=== PATIENT | female | born 1955 | race Caucasian/White ===

== ENCOUNTER 2019-12-09 18:30 | Observation (INO) | payer MEDICARE ==
[~2019-12-09] VITALS: Ht 160 cm; Wt 54.5 kg
--- NOTE | 2019-12-09 18:30 | NUR ---
PT IMMEDIATELY TO RM 11 VIA EMS STRETCHER. B/S TRIAGE COMPLETED.
[2019-12-09 18:57] LABS: HEMATOCRIT 38.8 % (37.0-47.0); HEMOGLOBIN 12.7 g/dl (12.0-16.0); IMMATURE GRANULOCYTES 0.4 % (0.0-5.0); MEAN CELL VOLUME 90.9 fL CALC (80.0-100.0); MEAN CORPUSCULAR HGB 29.7 pG CALC (26.0-32.0); MEAN CORPUSCULAR HGB CONC 32.7 g/dL CAL (32.0-36.0); NEUT# 6.87 thou/uL (2.00-7.15); RED BLOOD COUNT 4.27 mill/uL (4.20-5.60); RED CELL DISTRI WIDTH 13.2 % (11.5-15.5)
--- NOTE | 2019-12-09 19:04 | NUR ---
CALLED POISON CONTROL. RECOMMENDED SUPPORTIVE CARE OF ANY SYMPTOMS THAT MAY ARISE. SEIZURE PRECAUTIONS IF NECESSARY AND INCREASED OBSERVATION UNTIL SYMPTOMS PASS. PATIENT IS STATING TO JUST LET HER THAT SHE JUST WANTS TO
[2019-12-09 19:10] LABS: ALKALINE PHOSPHATASE 67 u/l (38-126); ANION GAP 11 (6-22 (CALC)); BILIRUBIN, TOTAL 0.8 mg/dL (0.0-1.4); BUN 15 mg/dL (8-23); BUN/CREATININE RATIO 17 (12-20 (CALC)); CARBON DIOXIDE 23 mmol/l (22-30); CHLORIDE 108 mmol/l (95-108); CREATININE 0.9 mg/dL (0.5-1.0); ETHYL ALCOHOL 0 mg/dl (0-30); GFR > 60 ML/MIN (>=60 (CALC)); GFR FOR AFR.AMER. > 60 ML/MIN (>=60 (CALC)); POTASSIUM 3.5 mmol/l (3.5-5.1); SGOT/AST 39 u/l (9-36); SODIUM 139 mmol/l (137-146)
[2019-12-09 19:12] LABS: PROTHROMBIN TIME 10.2 SECONDS (9.0-12.5)
--- NOTE | 2019-12-09 19:17 | NUR ---
REPORT TO PAOLA EDMONDSON
--- NOTE | 2019-12-09 20:29 | NUR ---
TOOK PT TO CT FOR SCANS. REMOVED SOFT WRIST RESTRAINTS AND PT SLEPT THROUGH ENTIRE EVALUATION. LEFT WRIST RESTRAINTS OFF. PT CONTINUES WITH SNORING RESPIRATIONS. DID NEURO ASSESSMENT UNABLE TO CHART BASELINE OF PT DUE TO MEDICATION.
--- NOTE | 2019-12-09 21:45 | NUR ---
IN TO STRAIGHT CATH PT TO OBTAIN URINE. INFORMED PT WHAT I WAS GOING TO DO. PT OPENED HER EYES, INFORMED HER AGAIN WHAT I WAS GOING TO DO AND SHE CLOSED EYES AGAIN AND QUICKLY RETURNED TO SNORING RESPIRATIONS.
[2019-12-09 22:12] LABS: URINE BILIRUBIN - DIPSTICK NEGATIVE (NEGATIVE); URINE BLOOD DIPSTICK MODERATE (NEGATIVE); URINE COLOR YELLOW; URINE GLUCOSE - DIPSTICK NEGATIVE (NEGATIVE); URINE KETONE NEGATIVE (NEGATIVE); URINE LEUK ESTERASE TRACE (NEGATIVE); URINE PH 5.5 (4.5-8.0); URINE PROTEIN - DIPSTICK TRACE mg/dL (NEG-TRACE); URINE SPECIFIC GRAVITY >=1.030; URINE UROBILINOGEN - DIPSTICK 0.2 E.U./dL (0.2)
[2019-12-09 22:15] LABS: URINE NITRITE - DIPSTICK POSITIVE (Negative)
[2019-12-09 22:24] LABS: URINE RBC 0-2 RBC/hpf (0-5)
[2019-12-09 22:25] LABS: URINE BACTERIA MANY hpf; URINE SQUAMOUS EPITHELIAL CELL FEW EPI/hpf (0-FEW)
--- NOTE | 2019-12-09 23:45 | NUR ---
EDENILSON FROM POISON CONTROL UPDATED.
--- NOTE | 2019-12-10 00:26 | NUR ---
PT WIDE AWAKE AND WANTS TO GO. INFORMED PT SHE SAID SHE WANTED TO KILL HERSELF WHEN SHE CAME IN. INFORMED PT SHE IS UNDER A SANDY ACT. PT STATED SHE DID NOT WANT TO GO BACK TO [facility] THAT SHE JUST GOT OUT OF THERE A FEW DAYS AGO. PT STATES THEY PUT HER ON ABILIFY 5MG AND SOMETHING THAT IS LIKE DEPAKOTE BUT BETTER 150 MG BID. PT STATED SHE SAID SHE WANTED TO KILL HERSELF BECAUSE SHE DIDN'T WANT A WHITE MALE THAT SHE ONLY LIKES BLACK MEN. SPOKE WITH EDENILSON AGAIN AT POISON CONTROL. SHE WANTS DEPAKOTE LEVEL SINCE PT MENTIONED IT AND REPEAT AST\ALT LEVEL.
--- NOTE | 2019-12-10 01:09 | NUR ---
PT HAS BEEN TALKING NON-STOP WITH IRIS. PT REPEATEDLY STATES SHE DOES NOT WANT TO GO BACK TO [facility] THAT SHE WAS JUST THERE FOR 5 DAYS. STILL WAITING ON DEPAKOTE AND REPEAT AST/ALT LEVELS
[2019-12-10 01:11] LABS: SGOT/AST 30 u/l (9-36)
--- NOTE | 2019-12-10 01:55 | NUR ---
CONRAD LEFT AND DEBO MORELAND TOOK OVER SITTING WITH PT.
--- NOTE | 2019-12-10 02:45 | NUR ---
PATIENT UP TO BEDSIDE COMMODE. PATIENT REMOVED HERSELF FROM MONITOR, ALSO REMOVED HER GOWN, STATES SHE FEELS HUMILIATED WEARING IT. PATIENT LINENS CHANGED FROM WATER SPILL. PATIENT GIVEN PILLOW AND WARM BLANKETS AND ENCOURAGED TO GET SOME REST SINCE IT IS ALMOST 3AM. PATIENT HAVING PRESSURED SPEECH.
--- NOTE | 2019-12-10 03:35 | NUR ---
SOBALTA WITH RACHEL AT POISON CONTROL. UPDATED ON LAB RESULTS AND PATIENT STATUS. STATES PATIENT IS MEDICALLY CLEARED FROM POISON CONTROL'S STANDPOINT. AWARE.
--- NOTE | 2019-12-10 04:11 | NUR ---
PATIENT RESTING WITH EYES CLOSED.
--- NOTE | 2019-12-10 05:12 | NUR ---
PATIENT AWAKE INTERMITTENTLY. DENIES ANY COMPLAINTS AT PRESENT. PATIENT HAS BEEN MEDICALLY CLEARED. RECORDS BEING SENT TO [facility] FOR ACCEPTANCE.
--- NOTE | 2019-12-10 06:00 | NUR ---
CALLED TO GIVE REPORT TO ICE, MARYAM WILL CALL BACK
--- NOTE | 2019-12-10 06:24 | NUR ---
REPORT GIVEN TO MATTHEW FRANCISCO
--- NOTE | 2019-12-10 06:34 | NUR ---
TRANSPORTED PT TO ICU BED 5. PT REFUSED TO PUT ON GOWN. 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
--- NOTE | 2019-12-10 06:40 | NUR ---
64 yr old female admitted icu5 per stretcher from er. amb to br then to bed. adarsh act cont. sitter @ bedside.
[2019-12-10 08:00] VITALS: BP 133/73
--- NOTE | 2019-12-10 08:00 | NUR ---
PT ARRIVES TO ICU-5 BY STRETCHER FROM ER ACCOMPANIED BY PAOLA RN. PT IS ALERT AND ORIENTED X 3, ALTHOUGH SHE IS IN MANIC MODE AND TALKS INCESSANTLY. LUNGS CLEAR, RA. SKIN INTACT. IV STARTED UPON ARRIVAL TO ICU SHE PULLED OUT ONE PLACED IN ER. SITTER NOW AT BEDSIDE PER SUICIDAL EXPRESSIONS DOCUMENTED BY ER.
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
--- NOTE | 2019-12-10 12:39 | NUR ---
PT WITH CONTINUED NONSTOP TALKING, SEEN AT TIMES TO BE TRIGGERED INTO ANGER BY NOT GETTING HER WAY. PT RANTS ABOUT FAMILY, FRIENDS, DIET, WHITE MEN. TRELL IRVING REMAINS AT BEDSIDE.
[2019-12-10 16:00] VITALS: BP 124/75
[2019-12-10] MEDS ORDERED: KEFLEX500 MG PO (16:06)
--- NOTE | 2019-12-10 16:14 | NUR ---
PT CONTINUES WITH TALKING ALMOST ALL THE TIME, BUT HAS BECOME CALM AND IS CARRYING ON CONVERSATION WITH SITTER INSTEAD OF JUST RAMBLING. CASE MGMT ATTEMPTS TO FIND PLACEMENT FOR HER.
--- NOTE | 2019-12-10 18:15 | NUR ---
PT HAS BEEN DISCHARGED TO [facility]. IV WAS REMOVED. PT LEFT IN CUSTODY OF [facility] X [facility] AMBULATORY.
== END 2019-12-10 18:30 ==
LOC: ED 18:30 → ED-I 22:55 → ED 23:09 → ICU 23:10 → ED-I 23:10 → ICU 23:43
PROVIDERS: Family Medicine; Student in an Organized Health Care Education/Training Program; ADMIT Internal Medicine; ATTEND Internal Medicine
DX: F31.2 Bipolar disorder, current episode manic severe with psychotic features (principal); R45.851 Suicidal ideations; N39.0 Urinary tract infection, site not specified; F12.10 Cannabis abuse, uncomplicated; T43.596A Underdosing of other antipsychotics and neuroleptics, initial encounter; B96.1 Klebsiella pneumoniae [K. pneumoniae] as the cause of diseases classified elsewhere; Z91.120 Patient's intentional underdosing of medication regimen due to financial hardship; Z11.59 Encounter for screening for other viral diseases
CPT/HCPCS: J1650; J2060